=== PATIENT | female | born 1955 | race Caucasian/White ===

== ENCOUNTER → 2017-01-05 | Outpatient (CLI) | payer BC ==
--- NOTE | 2017-01-06 09:12 | MG ---
HISTORY: SCREENING Comparison: 01/09/2014, 01/02/2015, 01/03/2016 FINDINGS: Bilateral CC and MLO projections of the right and left breast were obtained. Scattered fibroglandula r tissue is seen to be present. There is a developing architectural distortion/asymmetry posterior t o the right nipple with overlying skin thickening No pathological lymphadenopathy can be identified. Postsurgical changes of the left breast. IMPRESSION: Developing architectural distortion/asymmetry directly posterior to the right nipple wit h overlying skin thickening. ACR CATEGORY: 0 - ASSESSMENT INCOMPLETE; ADDITIONAL IMAGING IS NEEDED. Return for spot compression and ultrasound of the retroareolar right breast. Diagnostic CAD was utilized and reviewed. * 0 (ZERO) - ASSESSMENT INCOMPLETE; ADDITIONAL IMAGING IS NEEDED. * 1/1 (ONE) - NEGATIVE. * 2/II (TWO) - BENIGN FINDINGS. * 3/III (THREE) - PROBABLY BENIGN FINDING; SHORT INTERVAL FOLLOW-UP SUGGESTED. * 4/IV (FOUR) - SUSPICIOUS ABNORMALITY; BIOPSY SHOULD BE CONSIDERED. * 5/V - HIGHLY SUSPICIOUS OF MALIGNANCY; BIOPSY SHOULD BE PERFORMED. A NEGATIVE X-RAY REPORT SHOULD NOT DELAY BIOPSY IF A DOMINANT OR CLINICALLY SUSPICIOUS MASS IS PRESENT; 4 TO 8 PERCENT OF CANCERS ARE NOT IDENTIFIED BY X-RAY. A NEGA TIVE REPORT MAY REINFORCE THE CLINICAL IMPRESSION. ADENOSIS AND DENSE BREASTS MAY OBSCURE AN UNDERLY ING NEOPLASM. Reported By:
== END ==
LOC: RAD 13:00
PROVIDERS: ATTEND Surgery
DX: Z12.31 Encounter for screening mammogram for malignant neoplasm of breast (principal); R92.8 Other abnormal and inconclusive findings on diagnostic imaging of breast
CPT/HCPCS: 77067

== ENCOUNTER → 2017-01-20 | Outpatient (CLI) | payer BC ==
--- NOTE | 2017-01-20 15:14 | MG ---
Examination: Unilateral right diagnostic mammogram and right breast ultrasound. Clinical history: Abnormal screening mammogram. The patient gives a history of interval right breast ductal surgery in June 2016. Technique: Additional digital images of the right breast were obtained. Targeted right breast ultraso und was also obtained evaluating the retroareolar region of the right breast. Comparison: 01/05/2017, 01/03/2016. Findings: The right breast is composed of scattered fibroglandular densities. Benign-appearing calcifications a re noted in the right breast. A biopsy marking clip is present in the right breast. There is diffuse thickening of the skin of the periareolar region of the right breast. An area of arc hitectural distortion is also seen in the retroareolar region of the right breast. The patient gives a history of interval right breast ductal surgery in June 2016. Findings of probably postsurgical in nature. Targeted right breast ultrasound evaluating the retroareolar region of the right breast reveals an ir regular-shaped hypoechoic area with a tiny fluid collection seen in the retroareolar region, correlat ing with findings on the mammogram. Findings probably represent postsurgical changes from the interva l surgery. A follow-up right diagnostic mammogram and right breast ultrasound is recommended in 6 mon ths to re-evaluate. Impression: 1. Probable postsurgical changes in the retroareolar region of the right breast, as described above. BI-RADS category 3/III (THREE) - PROBABLY BENIGN FINDING; SHORT INTERVAL FOLLOW-UP SUGGESTED. Recommend a follow-up right diagnostic mammogram and right breast ultrasound in 6 months to re-evalua te. Diagnostic CAD was utilized and reviewed. * 0 (ZERO) - ASSESSMENT INCOMPLETE; ADDITIONAL IMAGING IS NEEDED. * 0C - ASSESSMENT INCOMPLETE, NEEDS ADDITIONAL IMAGING EVALUATION AND/OR PRIOR MAMMOGRAMS FOR COMPARI SON. * 1/ (ONE) - NEGATIVE. * 2/II (TWO) - BENIGN FINDINGS. * 3/III (THREE) - PROBABLY BENIGN FINDING; SHORT INTERVAL FOLLOW-UP SUGGESTED. * 4/IV (FOUR) - SUSPICIOUS ABNORMALITY; BIOPSY SHOULD BE CONSIDERED. * 5/V - HIGHLY SUSPICIOUS OF MALIGNANCY; BIOPSY SHOULD BE PERFORMED. * 6/IV - KNOWN BIOPSY PROVEN MALIGNANCY-APPROPRIATE ACTION SHOULD BE TAKEN. A NEGATIVE X-RAY REPORT SHOULD NOT DELAY BIOPSY IF A DOMINANT OR CLINICALLY SUSPICIOUS MASS IS PRESENT; 4 TO 8 PERCENT OF CANCERS ARE NOT IDENTIFIED BY X-RAY. A NEGATIVE REPORT MAY REINFORCE THE CLINICAL IMPRESSION. ADENOSIS AND DENSE BREASTS MAY OBSCURE AN UNDERLYING NEOPLASM. Reported By:
== END ==
LOC: RAD 13:21
PROVIDERS: ATTEND Surgery
DX: R92.8 Other abnormal and inconclusive findings on diagnostic imaging of breast (principal)
CPT/HCPCS: 76642; 77065